=== PATIENT | male | born 1940 | race Caucasian/White ===

== ENCOUNTER 2016-09-12 09:22 | Emergency (ER) | payer MEDICARE, BC ==
[~2016-09-12] VITALS: Ht 172.7 cm; Wt 75.1 kg
[2016-09-12 09:22] VITALS: BP 157/78
[~2016-09-12 09:22] MED LIST: ASPI325T4 PO; ASPIRIN PO; ATOR10TA9 PO; DIAZ10TA4 PO; ENAL10TA PO; GARLIC PO; HYDR25TA6 PO; L-THYROXINE PO; LABE100T3 PO; MULTIVITAMIN PO; OMEG1CAP6 PO; OXYC-229 PO; POTASSIUM GLUCONATE PO; SAW450CA2 PO; UBID50TA3 PO; ZINC PO
[2016-09-12] MEDS ORDERED: FLUT9.9S INFIL (09:45)
[2016-09-12] MEDS ORDERED: FAMOTIDINE 20 MG TABLET ONE (09:55)
[2016-09-12] MEDS ORDERED: FAMOTIDINE 20 MG TABLET PO ONE (10:00)
== END 2016-09-12 10:10 | disposition home or self-care (01) ==
LOC: ED 09:55
DX: T63.301A Toxic effect of unspecified spider venom, accidental (unintentional), initial encounter (principal); Y92.9 Unspecified place or not applicable; E03.9 Hypothyroidism, unspecified; I11.9 Hypertensive heart disease without heart failure
CPT/HCPCS: 99284; J7512; Q0177

== ENCOUNTER 2017-04-02 08:21 | Emergency (ER) | payer MEDICARE, BC ==
[~2017-04-02] VITALS: Ht 172.7 cm; Wt 72.0 kg
[~2017-04-02 08:21] MED LIST changes: +ASPI325T17 PO; -ASPI325T4 PO; +FLUT9.9S INFIL; -OXYC-229 PO; +OXYC-307 PO
[2017-04-02] MEDS ORDERED: ASPI-496 PO (11:14)
[2017-04-02] MEDS ORDERED: TAMS-11 PO (11:14)
[2017-04-02] MEDS ORDERED: KETOROLAC 30 MG/1 ML IVPush ONE (11:30)
[2017-04-02] MEDS ORDERED: SODIUM CHLORIDE FLUSH 10ML SYR IVF ONE (11:30)
[2017-04-02] MEDS ORDERED: SODIUM CHLORIDE 0.9% 1,000ML IVBOLUS ONE (11:30)
[2017-04-02 11:41] LABS: HEMATOCRIT 34.4 % (39.2-51.8); WHITE BLOOD COUNT 9.3 x10^3/uL (3.4-10)
[2017-04-02 11:52] LABS: BLOOD UREA NITROGEN 19 mg/dL (7-18)
[2017-04-02] MEDS ORDERED: KETOROLAC 30 MG/1 ML ONE (12:28)
[2017-04-02 13:50] LABS: PATH.CAST-FLAG NOT PRESENT; SPERM-FLAG NOT PRESENT; SRC-FLAG NOT PRESENT; XTAL-FLAG NOT PRESENT; YLC-FLAG NOT PRESENT
[2017-04-02 14:41] VITALS: BP 124/70
== END 2017-04-02 14:43 | disposition home or self-care (01) ==
LOC: ED 10:54
DX: M71.21 Synovial cyst of popliteal space [Baker], right knee (principal); L03.116 Cellulitis of left lower limb; M10.071 Idiopathic gout, right ankle and foot; M13.171 Monoarthritis, not elsewhere classified, right ankle and foot; I10 Essential (primary) hypertension; I25.10 Atherosclerotic heart disease of native coronary artery without angina pectoris; F41.9 Anxiety disorder, unspecified; E03.9 Hypothyroidism, unspecified; I25.2 Old myocardial infarction
CPT/HCPCS: 36415; 80048; 81001; 82040; 83605; 84550; 85025; 87040; 87086; 93970; 96361; 96374; 99285; J1885; J7030

== ENCOUNTER 2017-09-16 12:45 | Emergency (ER) | payer MEDICARE, BC ==
[~2017-09-16] VITALS: Ht 180.3 cm; Wt 80.0 kg
[~2017-09-16 12:45] MED LIST changes: +ALLO300T PO; +ASPI-496 PO; +CLON-364 PO; +INDO50CA PO; +LABE200T3 PO; +LEVO100T PO; +PRED5TAB PO; -SAW450CA2 PO; +SAW450CA7 PO; +TAMS-11 PO
[2017-09-16] MEDS ORDERED: SODIUM CHLORIDE 0.9% 1,000ML IVBOLUS ONE (13:00)
[2017-09-16] MEDS ORDERED: MORPHINE SULFATE 4 MG/ML, 1ML IVPush PRN (13:00)
[2017-09-16] MEDS ORDERED: ONDANSETRON ODT 4 MG PO PRN (13:00)
[2017-09-16 13:29] LABS: BASOPHILS # (AUTO) 0.03 x10^3/uL (0-0.1); BASOPHILS % (AUTO) 1 % (0-1); EOSINOPHILS % (AUTO) 0 % (1-7); LYMPHOCYTES # (AUTO) 1.79 x10^3/uL (1-3.4); LYMPHOCYTES % (AUTO) 35 % (22-44); MD NO; MEAN CORPUSCULAR HEMOGLOBIN 32.7 pg (27.5-34.5); MEAN CORPUSCULAR HGB CONC 34.5 g/dL (33.2-36.2); MEAN CORPUSCULAR VOLUME 94.8 fL (81-97); MEAN PLATELET VOLUME 7.7 fL (7.4-10.4); MONOCYTES # (AUTO) 0.53 x10^3/uL (0.2-0.8); MONOCYTES % (AUTO) 10 % (2-9); NEUTROPHILS # (AUTO) 2.77 x10^3/uL (1.8-6.8); NEUTROPHILS % (AUTO) 54 % (42-75); PLATELET COUNT 128 x10^3/uL (130-400); RED BLOOD COUNT 3.24 x10^6/uL (4.38-5.82); RED CELL DISTRIBUTION WIDTH 15.1 % (9.4-14.8)
[2017-09-16 13:30] LABS: ALANINE AMINOTRANSFERASE 24 U/L (12-78); ALBUMIN 2.9 g/dL (3.4-5.0); ANION GAP 5 mmol/L (5-15); CHLORIDE 97 mmol/L (98-107); CREATININE 1.62 mg/dL (0.7-1.3)
[2017-09-16 13:33] LABS: ALKALINE PHOSPHATASE 81 U/L (45-117); TOTAL PROTEIN 5.7 g/dL (6.4-8.2)
[2017-09-16 14:47] VITALS: BP 138/87
== END 2017-09-16 14:49 | disposition home or self-care (01) ==
LOC: ED 12:52
DX: K80.20 Calculus of gallbladder without cholecystitis without obstruction (principal); E86.0 Dehydration; I10 Essential (primary) hypertension; I25.2 Old myocardial infarction; E03.9 Hypothyroidism, unspecified; I25.10 Atherosclerotic heart disease of native coronary artery without angina pectoris; M10.9 Gout, unspecified; F41.9 Anxiety disorder, unspecified
CPT/HCPCS: 36415; 80053; 83690; 85025; 93005; 96360; 99285; J7030

== ENCOUNTER 2017-09-26 08:10 | Day surgery (SDC) | payer MEDICARE, BC ==
[~2017-09-26] VITALS: Ht 172.7 cm; Wt 70.3 kg
[~2017-09-26 08:10] MED LIST changes: +BUPIVACAINE/PF 0.25% ONE; +EPINEPHRINE 1 MG/ML, 1ML ONE
[2017-09-26] MEDS ORDERED: LACTATED RINGERS 1,000 ML IV SCH (08:51)
[2017-09-26 08:52] VITALS: BP 93/61
[2017-09-26 09:58] LABS: ALANINE AMINOTRANSFERASE 30 U/L (12-78); ALBUMIN 3.2 g/dL (3.4-5.0); ANION GAP 10 mmol/L (5-15); CALCIUM 8.4 mg/dL (8.5-10.1); CHLORIDE 93 mmol/L (98-107)
[2017-09-26 10:00] LABS: ALKALINE PHOSPHATASE 100 U/L (45-117); BILIRUBIN,TOTAL 1.2 mg/dL (0.2-1.0); CREATININE 2.04 mg/dL (0.7-1.3); TOTAL PROTEIN 6.6 g/dL (6.4-8.2)
[2017-09-26] MEDS ORDERED: PROPOFOL 10 MG/ML, 20ML ONE (10:05)
[2017-09-26] MEDS ORDERED: CEFAZOLIN 1,000 MG ONE (10:05)
[2017-09-26] MEDS ORDERED: ROCURONIUM 10 MG/ML,10ML ONE (10:05)
[2017-09-26] MEDS ORDERED: DEXAMETHASONE 4 MG/ML, 1ML ONE (10:05)
[2017-09-26] MEDS ORDERED: GLYCOPYRROLATE 0.2MG/1ML, 5ML ONE (10:05)
[2017-09-26] MEDS ORDERED: SUCCINYLCHOLINE 20 MG/ML, 10ML ONE (10:05)
[2017-09-26] MEDS ORDERED: ONDANSETRON 2MG/ML, 2ML ONE (10:05)
[2017-09-26] MEDS ORDERED: FENTANYL PF 250 MCG/5ML ONE (10:07)
[2017-09-26] MEDS ORDERED: EPINEPHRINE 1 MG/ML, 1ML ONE (10:09)
[2017-09-26] MEDS ORDERED: hydrALAzine 20 MG/ML, 1ML IV PRN (11:00)
[2017-09-26] MEDS ORDERED: ACETAMINOPHEN 325 MG TABLET PO PRN (11:00)
[2017-09-26] MEDS ORDERED: FENTANYL PF 100 MCG/2ML IV PRN (11:00)
[2017-09-26] MEDS ORDERED: OXYcodone 5 MG/5 ML ORAL.SOL UDC PO PRN (11:00)
[2017-09-26] MEDS ORDERED: HYDROmorphone 1 MG/ML, 1ML IV PRN (11:00)
[2017-09-26] MEDS ORDERED: MORPHINE SULFATE 4 MG/ML, 1ML IVPush PRN (11:00)
[2017-09-26] MEDS ORDERED: LABETALOL 5MG/ML, 20ML IV PRN (11:00)
[2017-09-26] MEDS ORDERED: ALBUTEROL SULFATE 2.5 MG/3 ML NPPB PRN (11:00)
[2017-09-26] MEDS ORDERED: PROMETHAZINE 25 MG/ML, 1ML IV PRN (11:00)
[2017-09-26] MEDS ORDERED: OXYcodone 5 MG/5 ML ORAL.SOL UDC ONE (11:37)
[2017-09-26] MEDS ORDERED: hydrALAzine 20 MG/ML, 1ML ONE (11:37)
== END 2017-09-26 15:55 ==
LOC: OUT 08:10
PROVIDERS: ATTEND Surgery
DX: K80.20 Calculus of gallbladder without cholecystitis without obstruction (principal); I10 Essential (primary) hypertension; I25.10 Atherosclerotic heart disease of native coronary artery without angina pectoris; I25.2 Old myocardial infarction; Z79.82 Long term (current) use of aspirin; Z87.39 Personal history of other diseases of the musculoskeletal system and connective tissue; Z98.890 Other specified postprocedural states; Z98.52 Vasectomy status; Z98.42 Cataract extraction status, left eye; Z98.41 Cataract extraction status, right eye; Z88.0 Allergy status to penicillin
CPT/HCPCS: 36415; 47562; 80053; 88304; J0171; J0330; J0360; J0690; J1100; J2405; J2704; J3010; J3490; J7120

== ENCOUNTER 2018-06-29 18:35 | Inpatient (IN) | payer MEDICARE, BC ==
[~2018-06-29] VITALS: Ht 172.7 cm; Wt 68.0 kg
[~2018-06-29 18:35] MED LIST changes: -BUPIVACAINE/PF 0.25% ONE; -CLON-364 PO; +CLON0.5T11 PO; -EPINEPHRINE 1 MG/ML, 1ML ONE; -INDO50CA PO; +INDO50CA5 PO; -LABE100T3 PO; +LABE100T6 PO; -LABE200T3 PO; +LABE200T6 PO
[2018-06-29] MEDS ORDERED: AMPICILLIN/SULBACTAM 3 GM in SODIUM CHLORIDE 0.9% 100 ML IV ONE (19:00)
[2018-06-29] MEDS ORDERED: HYDROcodone/APAP 5/325 TABLET PO ONE (19:00)
[2018-06-29] MEDS ORDERED: SODIUM CHLORIDE FLUSH 10ML SYR IVF ONE (19:00)
[2018-06-29] MEDS ORDERED: LABE100T6 PO (19:23)
[2018-06-29] MEDS ORDERED: TAMS-11 PO (19:23)
[2018-06-29] MEDS ORDERED: HYDROcodone/APAP 5/325 TABLET ONE (19:26)
[2018-06-29] MEDS ORDERED: VANCOMYCIN 1,400 MG in SODIUM CHLORIDE 0.9% 250 ML IV ONE (19:30)
[2018-06-29] MEDS ORDERED: VANCOMYCIN PER PHARMACY MC ONE (19:30)
[2018-06-29 19:38] LABS: BASOPHILS # (AUTO) 0.03 x10^3/uL (0-0.1); BASOPHILS % (AUTO) 0 % (0-1); EOSINOPHILS % (AUTO) 0 % (1-7); LYMPHOCYTES % (AUTO) 13 % (22-44); MD NO; MEAN CORPUSCULAR HEMOGLOBIN 33.9 pg (27.5-34.5); MEAN CORPUSCULAR HGB CONC 34.7 g/dL (33.2-36.2); MEAN CORPUSCULAR VOLUME 97.6 fL (81-97); MEAN PLATELET VOLUME 8.2 fL (7.4-10.4); MONOCYTES # (AUTO) 1.11 x10^3/uL (0.2-0.8); MONOCYTES % (AUTO) 10 % (2-9); NEUTROPHILS # (AUTO) 8.69 x10^3/uL (1.8-6.8); NEUTROPHILS % (AUTO) 77 % (42-75); PLATELET COUNT 152 x10^3/uL (130-400); RED BLOOD COUNT 3.86 x10^6/uL (4.38-5.82); RED CELL DISTRIBUTION WIDTH 12.9 % (9.4-14.8)
[2018-06-29 19:40] LABS: ALANINE AMINOTRANSFERASE 27 U/L (12-78); ALBUMIN 3.6 g/dL (3.4-5.0); ANION GAP 11 mmol/L (5-15); CALCIUM 8.3 mg/dL (8.5-10.1); CHLORIDE 98 mmol/L (98-107); CREATININE 1.86 mg/dL (0.7-1.3)
[2018-06-29 19:42] LABS: ALKALINE PHOSPHATASE 96 U/L (45-117); BILIRUBIN,TOTAL 1.8 mg/dL (0.2-1.0); TOTAL PROTEIN 6.6 g/dL (6.4-8.2)
--- NOTE | 2018-06-29 20:02 | NUR ---
REPORT RECEIVED FROM DES KIDD. PT MOVED TO ROOM 1
--- NOTE | 2018-06-29 20:27 | NUR ---
REPORT TO DES GARCIA
--- NOTE | 2018-06-29 20:34 | NUR ---
PT MEDICATED PER EMAR. 5 RIGHTS ADDRESSED
[2018-06-29] MEDS ORDERED: LABETALOL 20 MG/4 ML IVPush PRN (21:00)
[2018-06-29] MEDS ORDERED: PHARMACY MAY ADJ FOR RENAL FX MC PRN (21:00)
[2018-06-29] MEDS ORDERED: TEMAZEPAM 15 MG CAPSULE PO PRN (21:00)
[2018-06-29] MEDS ORDERED: LIDODERM 5% PATCH TD PRN (21:00)
[2018-06-29] MEDS ORDERED: HYDROcodone/APAP 5/325 TABLET PO PRN (21:00)
[2018-06-29] MEDS ORDERED: VANCOMYCIN PER PHARMACY MC PRN (21:00)
[2018-06-29] MEDS ORDERED: ACETAMINOPHEN 325 MG TABLET PO PRN (21:00)
[2018-06-29] MEDS ORDERED: ONDANSETRON ODT 4 MG PO PRN (21:00)
[2018-06-29] MEDS ORDERED: DOCUSATE 100 MG CAPSULE PO PRN (21:00)
[2018-06-29] MEDS: ATORVASTATIN 10 MG TABLET PO SCH (21:30)
[2018-06-29] MEDS: ENALAPRIL 10 MG TABLET PO SCH (21:30)
[2018-06-29] MEDS: LABETALOL 100 MG TABLET PO SCH (21:30)
[2018-06-29] MEDS ORDERED: SODIUM CHLORIDE 0.9% 1,000 ML IV SCH (21:41)
[2018-06-29] MEDS ORDERED: PHARMACOKINETIC MONITORING MC PRN (23:00)
[2018-06-29] MEDS ORDERED: PHARMACOKINETIC CONSULTATION MC ONE (23:00)
[2018-06-29 23:16] VITALS: BP 88/54
[2018-06-30 01:55] VITALS: BP 108/64
[2018-06-30] MEDS: AMPICILLIN/SULBACTAM 3 GM in SODIUM CHLORIDE 0.9% 100 ML IV SCH ×3 (02:22→18:41)
[2018-06-30 05:02] LABS: BASOPHILS # (AUTO) 0.04 x10^3/uL (0-0.1); BASOPHILS % (AUTO) 0 % (0-1); EOSINOPHILS # (AUTO) 0.02 x10^3/uL (0-0.4); EOSINOPHILS % (AUTO) 0 % (1-7); LYMPHOCYTES # (AUTO) 1.61 x10^3/uL (1-3.4); LYMPHOCYTES % (AUTO) 17 % (22-44); MD NO; MEAN CORPUSCULAR HEMOGLOBIN 34.1 pg (27.5-34.5); MEAN CORPUSCULAR HGB CONC 35.2 g/dL (33.2-36.2); MEAN CORPUSCULAR VOLUME 96.7 fL (81-97); MEAN PLATELET VOLUME 8.3 fL (7.4-10.4); MONOCYTES # (AUTO) 0.87 x10^3/uL (0.2-0.8); MONOCYTES % (AUTO) 9 % (2-9); NEUTROPHILS # (AUTO) 6.91 x10^3/uL (1.8-6.8); NEUTROPHILS % (AUTO) 73 % (42-75); PLATELET COUNT 131 x10^3/uL (130-400); RED BLOOD COUNT 3.43 x10^6/uL (4.38-5.82); RED CELL DISTRIBUTION WIDTH 12.7 % (9.4-14.8)
[2018-06-30 05:10] LABS: ANION GAP 7 mmol/L (5-15); CALCIUM 7.7 mg/dL (8.5-10.1); CHLORIDE 102 mmol/L (98-107); CREATININE 1.44 mg/dL (0.7-1.3)
[2018-06-30] MEDS: LEVOTHYROXINE 100 MCG TABLET PO SCH (05:20)
[2018-06-30] MEDS ORDERED: ACETAMINOPHEN 325 MG TABLET PO PRN (07:00)
[2018-06-30] MEDS ORDERED: POTASSIUM CHLORIDE 20 MEQ TAB.ER.PRT PO ONE (07:30)
[2018-06-30 07:35] VITALS: BP 138/78
[2018-06-30] MEDS: ASPIRIN 81 MG TABLET EC PO SCH (11:19)
[2018-06-30] MEDS: TAMSULOSIN 0.4 MG CAP.ER.24H PO SCH (11:19)
[2018-06-30] MEDS: LABETALOL 100 MG TABLET PO SCH ×2 (11:20→20:14)
[2018-06-30] MEDS: ENALAPRIL 10 MG TABLET PO SCH ×2 (11:20→20:14)
[2018-06-30] MEDS: SODIUM CHLORIDE 0.9% 1,000 ML IV SCH (11:51)
[2018-06-30] MEDS: HEPARIN 5,000 UNITS/ML, 1ML SQ SCH ×2 (12:00→20:00)
[2018-06-30 14:00] VITALS: BP 135/72
[2018-06-30 19:47] VITALS: BP 149/75
[2018-06-30] MEDS: ATORVASTATIN 10 MG TABLET PO SCH (20:14)
[2018-07-01 00:44] VITALS: BP 144/79
[2018-07-01] MEDS: HEPARIN 5,000 UNITS/ML, 1ML SQ SCH ×3 (03:12→20:22)
[2018-07-01] MEDS: AMPICILLIN/SULBACTAM 3 GM in SODIUM CHLORIDE 0.9% 100 ML IV SCH ×3 (03:12→20:36)
[2018-07-01 04:34] LABS: BASOPHILS # (AUTO) 0.04 x10^3/uL (0-0.1); BASOPHILS % (AUTO) 1 % (0-1); EOSINOPHILS # (AUTO) 0.01 x10^3/uL (0-0.4); EOSINOPHILS % (AUTO) 0 % (1-7); LYMPHOCYTES # (AUTO) 1.55 x10^3/uL (1-3.4); LYMPHOCYTES % (AUTO) 17 % (22-44); MD NO; MEAN CORPUSCULAR HEMOGLOBIN 33.2 pg (27.5-34.5); MEAN CORPUSCULAR HGB CONC 33.6 g/dL (33.2-36.2); MEAN CORPUSCULAR VOLUME 98.7 fL (81-97); MEAN PLATELET VOLUME 8.8 fL (7.4-10.4); MONOCYTES # (AUTO) 0.92 x10^3/uL (0.2-0.8); MONOCYTES % (AUTO) 10 % (2-9); NEUTROPHILS # (AUTO) 6.83 x10^3/uL (1.8-6.8); NEUTROPHILS % (AUTO) 73 % (42-75); PLATELET COUNT 124 x10^3/uL (130-400); RED CELL DISTRIBUTION WIDTH 13.1 % (9.4-14.8)
[2018-07-01 04:47] LABS: ANION GAP 4 mmol/L (5-15); CALCIUM 7.9 mg/dL (8.5-10.1); CHLORIDE 106 mmol/L (98-107)
[2018-07-01 04:48] LABS: CREATININE 1.14 mg/dL (0.7-1.3)
[2018-07-01] MEDS: SODIUM CHLORIDE 0.9% 1,000 ML IV SCH (06:00)
[2018-07-01] MEDS ORDERED: MAGNESIUM SULFATE PMX 4GM/100M 100 ML IV ONE (07:00)
[2018-07-01] MEDS: LEVOTHYROXINE 100 MCG TABLET PO SCH (07:50)
[2018-07-01] MEDS: ASPIRIN 81 MG TABLET EC PO SCH (07:51)
[2018-07-01] MEDS: LABETALOL 100 MG TABLET PO SCH ×2 (07:51→20:22)
[2018-07-01] MEDS: TAMSULOSIN 0.4 MG CAP.ER.24H PO SCH (07:51)
[2018-07-01] MEDS: ENALAPRIL 10 MG TABLET PO SCH ×2 (07:51→20:22)
[2018-07-01 07:52] VITALS: BP 136/74
[2018-07-01] MEDS ORDERED: VANCOMYCIN PER PHARMACY MC PRN (09:30)
[2018-07-01] MEDS ORDERED: PHARMACOKINETIC MONITORING MC PRN (10:00)
[2018-07-01] MEDS ORDERED: PHARMACOKINETIC CONSULTATION MC ONE (10:00)
[2018-07-01] MEDS: VANCOMYCIN 1,300 MG in SODIUM CHLORIDE 0.9% 250 ML IV SCH (10:51)
[2018-07-01 14:00] VITALS: BP 132/77
[2018-07-01 19:52] VITALS: BP 168/84
[2018-07-01] MEDS: ATORVASTATIN 10 MG TABLET PO SCH (20:22)
[2018-07-02 01:54] VITALS: BP 154/87
[2018-07-02] MEDS: SODIUM CHLORIDE 0.9% 1,000 ML IV SCH ×2 (01:59→04:26)
[2018-07-02] MEDS: AMPICILLIN/SULBACTAM 3 GM in SODIUM CHLORIDE 0.9% 100 ML IV SCH (04:26)
[2018-07-02] MEDS: HEPARIN 5,000 UNITS/ML, 1ML SQ SCH ×2 (04:27→10:58)
[2018-07-02 07:40] VITALS: BP 150/88
[2018-07-02 08:21] VITALS: BP 154/83
[2018-07-02] MEDS: TAMSULOSIN 0.4 MG CAP.ER.24H PO SCH (08:22)
[2018-07-02] MEDS: LEVOTHYROXINE 100 MCG TABLET PO SCH (08:22)
[2018-07-02] MEDS: ASPIRIN 81 MG TABLET EC PO SCH (08:22)
[2018-07-02] MEDS: ENALAPRIL 10 MG TABLET PO SCH (08:23)
[2018-07-02] MEDS: LABETALOL 100 MG TABLET PO SCH (08:23)
[2018-07-02] MEDS ORDERED: ACET325T14 PO (09:16)
[2018-07-02] MEDS ORDERED: LINE600T37 PO (09:16)
[2018-07-02] MEDS: VANCOMYCIN 1,300 MG in SODIUM CHLORIDE 0.9% 250 ML IV SCH (10:51)
== END 2018-07-02 13:30 | disposition home or self-care (01) | DRG 871 ==
LOC: ED 19:29 → EDIP 20:46 → 3NW 22:13
PROVIDERS: ADMIT Family Medicine; ATTEND Family Medicine
DX: A41.9 Sepsis, unspecified organism (principal); N17.0 Acute kidney failure with tubular necrosis; L03.113 Cellulitis of right upper limb; E87.1 Hypo-osmolality and hyponatremia; Z88.2 Allergy status to sulfonamides; D53.9 Nutritional anemia, unspecified; E03.9 Hypothyroidism, unspecified; E78.00 Pure hypercholesterolemia, unspecified; E78.5 Hyperlipidemia, unspecified; E83.42 Hypomagnesemia; E87.6 Hypokalemia; G47.00 Insomnia, unspecified; I12.9 Hypertensive chronic kidney disease with stage 1 through stage 4 chronic kidney disease, or unspecified chronic kidney disease; I25.10 Atherosclerotic heart disease of native coronary artery without angina pectoris; I25.2 Old myocardial infarction; N18.2 Chronic kidney disease, stage 2 (mild); W55.01XA Bitten by cat, initial encounter; Z82.49 Family history of ischemic heart disease and other diseases of the circulatory system; Z87.891 Personal history of nicotine dependence; Z95.5 Presence of coronary angioplasty implant and graft; Z96.641 Presence of right artificial hip joint; W55.03XA Scratched by cat, initial encounter; Y93.89 Activity, other specified; Y92.89 Other specified places as the place of occurrence of the external cause; Y99.8 Other external cause status; Z79.82 Long term (current) use of aspirin; Z79.899 Other long term (current) drug therapy; R15.9 Full incontinence of feces
CPT/HCPCS: 36415; 80048; 80053; 82607; 83735; 85025; 87040; 87070; 87077; 87186; 87205; 99285; G0378; J0295; J3370; J3475; J7030; J7050

== ENCOUNTER → 2018-07-04 | Outpatient (CLI) | payer MEDICARE, BC ==
[~2018-07-04] MED LIST changes: +ACET325T14 PO; +LINE600T37 PO
== END | disposition home or self-care (01) ==
LOC: WOUND 13:52
PROVIDERS: ATTEND Internal Medicine
DX: L03.113 Cellulitis of right upper limb (principal); I10 Essential (primary) hypertension; E78.5 Hyperlipidemia, unspecified; I25.2 Old myocardial infarction; E03.9 Hypothyroidism, unspecified; Z96.641 Presence of right artificial hip joint; Z87.891 Personal history of nicotine dependence
CPT/HCPCS: 97597; G0463

== ENCOUNTER → 2018-07-11 | Outpatient (CLI) | payer MEDICARE, BC | END | disposition home or self-care (01) | LOC: WOUND 14:00 | PROVIDERS: ATTEND Internal Medicine | DX: L03.113 Cellulitis of right upper limb (principal); I10 Essential (primary) hypertension; E78.5 Hyperlipidemia, unspecified; I25.2 Old myocardial infarction; E03.9 Hypothyroidism, unspecified; Z96.641 Presence of right artificial hip joint; Z87.891 Personal history of nicotine dependence | CPT/HCPCS: 97597 ==

== ENCOUNTER → 2018-07-18 | Outpatient (CLI) | payer MEDICARE, BC | END | disposition home or self-care (01) | LOC: WOUND 13:33 | PROVIDERS: ATTEND Internal Medicine | DX: S51.801D Unspecified open wound of right forearm, subsequent encounter (principal); L03.113 Cellulitis of right upper limb; I51.0 Cardiac septal defect, acquired; I10 Essential (primary) hypertension; E78.5 Hyperlipidemia, unspecified; I25.2 Old myocardial infarction; E03.9 Hypothyroidism, unspecified; E78.00 Pure hypercholesterolemia, unspecified; I25.10 Atherosclerotic heart disease of native coronary artery without angina pectoris; Z88.2 Allergy status to sulfonamides; Z79.82 Long term (current) use of aspirin; Z79.899 Other long term (current) drug therapy; Z96.641 Presence of right artificial hip joint; Z87.891 Personal history of nicotine dependence; Z95.5 Presence of coronary angioplasty implant and graft; W55.01XD Bitten by cat, subsequent encounter | CPT/HCPCS: 97597 ==

== ENCOUNTER → 2018-07-25 | Outpatient (CLI) | payer MEDICARE, BC | END | disposition home or self-care (01) | LOC: WOUND 08:54 | PROVIDERS: ATTEND Internal Medicine | DX: S51.801D Unspecified open wound of right forearm, subsequent encounter (principal); W55.01XD Bitten by cat, subsequent encounter; I10 Essential (primary) hypertension; E78.5 Hyperlipidemia, unspecified; I25.2 Old myocardial infarction; E03.9 Hypothyroidism, unspecified; Z96.659 Presence of unspecified artificial knee joint; Z96.641 Presence of right artificial hip joint; Z87.891 Personal history of nicotine dependence | CPT/HCPCS: 17250 ==

== ENCOUNTER 2018-08-07 15:48 | Emergency (ER) | payer MEDICARE, BC ==
[~2018-08-07] VITALS: Ht 172.7 cm; Wt 68.0 kg
[2018-08-07 16:02] VITALS: BP 122/69
--- NOTE | 2018-08-07 17:14 | NUR ---
Patient/Caregiver given discharge instructions and they have confirmed that they understand the instructions. Patient ambulatory with steady gait.
== END 2018-08-07 17:16 | disposition home or self-care (01) ==
LOC: ED 17:10
DX: S80.872A Other superficial bite, left lower leg, initial encounter (principal); S80.871A Other superficial bite, right lower leg, initial encounter; E03.9 Hypothyroidism, unspecified; I25.2 Old myocardial infarction; I25.10 Atherosclerotic heart disease of native coronary artery without angina pectoris; I10 Essential (primary) hypertension; M19.90 Unspecified osteoarthritis, unspecified site; F41.1 Generalized anxiety disorder; Z87.891 Personal history of nicotine dependence; W54.0XXA Bitten by dog, initial encounter; Y93.89 Activity, other specified; Y92.89 Other specified places as the place of occurrence of the external cause; Y99.8 Other external cause status
CPT/HCPCS: 99281; 99283

== ENCOUNTER → 2018-08-08 | Outpatient (CLI) | payer MEDICARE, BC | END | disposition home or self-care (01) | LOC: WOUND 08:53 | PROVIDERS: ATTEND Internal Medicine | DX: L97.222 Non-pressure chronic ulcer of left calf with fat layer exposed (principal); L03.113 Cellulitis of right upper limb; I12.9 Hypertensive chronic kidney disease with stage 1 through stage 4 chronic kidney disease, or unspecified chronic kidney disease; N18.2 Chronic kidney disease, stage 2 (mild); I25.2 Old myocardial infarction; E03.9 Hypothyroidism, unspecified; G62.9 Polyneuropathy, unspecified; E78.5 Hyperlipidemia, unspecified; E78.00 Pure hypercholesterolemia, unspecified; M19.90 Unspecified osteoarthritis, unspecified site; I25.10 Atherosclerotic heart disease of native coronary artery without angina pectoris; F41.1 Generalized anxiety disorder; Z96.641 Presence of right artificial hip joint; Z88.2 Allergy status to sulfonamides; Z79.82 Long term (current) use of aspirin; Z79.899 Other long term (current) drug therapy; Z87.891 Personal history of nicotine dependence; Z95.5 Presence of coronary angioplasty implant and graft | CPT/HCPCS: 97597 ==

== ENCOUNTER → 2018-08-15 | Outpatient (CLI) | payer MEDICARE, BC | END | disposition home or self-care (01) | LOC: WOUND 09:00 | PROVIDERS: ATTEND Internal Medicine | DX: L97.222 Non-pressure chronic ulcer of left calf with fat layer exposed (principal); L03.113 Cellulitis of right upper limb; I12.9 Hypertensive chronic kidney disease with stage 1 through stage 4 chronic kidney disease, or unspecified chronic kidney disease; N18.2 Chronic kidney disease, stage 2 (mild); E78.5 Hyperlipidemia, unspecified; I25.2 Old myocardial infarction; E03.9 Hypothyroidism, unspecified; G62.9 Polyneuropathy, unspecified; E78.00 Pure hypercholesterolemia, unspecified; M19.90 Unspecified osteoarthritis, unspecified site; I25.10 Atherosclerotic heart disease of native coronary artery without angina pectoris; F41.1 Generalized anxiety disorder; Z88.2 Allergy status to sulfonamides; Z87.891 Personal history of nicotine dependence; Z79.82 Long term (current) use of aspirin; Z79.899 Other long term (current) drug therapy; Z95.5 Presence of coronary angioplasty implant and graft; Z96.651 Presence of right artificial knee joint; W55.01XS Bitten by cat, sequela | CPT/HCPCS: 97597 ==

== ENCOUNTER 2018-08-22 07:48 | Outpatient (CLI) | payer MEDICARE, BC | END 2018-08-22 23:59 | disposition home or self-care (01) | LOC: WOUND 07:48 | PROVIDERS: ATTEND Internal Medicine | DX: L97.222 Non-pressure chronic ulcer of left calf with fat layer exposed (principal); L03.113 Cellulitis of right upper limb; I10 Essential (primary) hypertension; E78.5 Hyperlipidemia, unspecified; I25.2 Old myocardial infarction; E03.9 Hypothyroidism, unspecified; G62.9 Polyneuropathy, unspecified; E78.00 Pure hypercholesterolemia, unspecified; M19.90 Unspecified osteoarthritis, unspecified site; I25.10 Atherosclerotic heart disease of native coronary artery without angina pectoris; F41.1 Generalized anxiety disorder; Z79.82 Long term (current) use of aspirin; Z79.899 Other long term (current) drug therapy; Z88.2 Allergy status to sulfonamides; Z96.651 Presence of right artificial knee joint; Z87.891 Personal history of nicotine dependence; Z95.5 Presence of coronary angioplasty implant and graft; W55.01XS Bitten by cat, sequela | CPT/HCPCS: 97597 ==

== ENCOUNTER → 2018-09-05 | Outpatient (CLI) | payer MEDICARE, BC | END | disposition home or self-care (01) | LOC: WOUND 08:55 | PROVIDERS: ATTEND Internal Medicine | DX: L97.228 Non-pressure chronic ulcer of left calf with other specified severity (principal); L03.113 Cellulitis of right upper limb; I12.9 Hypertensive chronic kidney disease with stage 1 through stage 4 chronic kidney disease, or unspecified chronic kidney disease; N18.2 Chronic kidney disease, stage 2 (mild); E78.5 Hyperlipidemia, unspecified; I25.2 Old myocardial infarction; E03.9 Hypothyroidism, unspecified; G62.9 Polyneuropathy, unspecified; E78.00 Pure hypercholesterolemia, unspecified; M19.90 Unspecified osteoarthritis, unspecified site; I25.10 Atherosclerotic heart disease of native coronary artery without angina pectoris; F41.1 Generalized anxiety disorder; Z88.2 Allergy status to sulfonamides; Z79.82 Long term (current) use of aspirin; Z79.899 Other long term (current) drug therapy; Z87.891 Personal history of nicotine dependence; Z96.651 Presence of right artificial knee joint; W55.01XS Bitten by cat, sequela | CPT/HCPCS: G0463 ==